=== PATIENT | female | born 1955 | race Caucasian/White ===

== ENCOUNTER 2018-05-02 15:31 | Emergency (ER) | payer MEDICARE, OTHER ==
[2018-05-02] MEDS ORDERED: NAPROXEN 500 MG TABLET ONE (16:22)
== END 2018-05-02 16:35 | disposition home or self-care (01) ==
LOC: EDH 15:31
DX: S52.592A Other fractures of lower end of left radius, initial encounter for closed fracture (principal); R03.0 Elevated blood-pressure reading, without diagnosis of hypertension; J44.9 Chronic obstructive pulmonary disease, unspecified; Z87.891 Personal history of nicotine dependence; Z88.6 Allergy status to analgesic agent; W18.39XA Other fall on same level, initial encounter; Y93.89 Activity, other specified; Y92.098 Other place in other non-institutional residence as the place of occurrence of the external cause; Y99.8 Other external cause status
CPT/HCPCS: 29125; 73110

== ENCOUNTER 2019-05-13 10:40 | Observation (INO) | payer OTHER ==
[~2019-05-13] VITALS: Ht 162.6 cm; Wt 83.5 kg
[2019-05-13] MEDS ORDERED: SODIUM CHLORIDE 0.9% 1000ML 1,000 ML IV ONE ×2 (10:48→15:09)
[2019-05-13] MEDS ORDERED: ONDANSETRON HCL 4 MG/2 ML VIAL ONE (11:00)
[2019-05-13] MEDS ORDERED: MORPHINE SULFATE 4 MG/1ML SYG ONE ×2 (11:00→15:09)
[2019-05-13 11:03] LABS: BASOPHILS % (AUTO) 0.6 % (0.0-5.0); EOSINOPHILS % (AUTO) 1.8 % (0.0-8.0); HEMATOCRIT 42.9 % (36-48); MEAN CORPUSCULAR HEMOGLOBIN 29.7 pg (27.0-33.0); MEAN CORPUSCULAR HGB CONC 32.9 g/dL (32.0-36.0); MEAN CORPUSCULAR VOLUME 90.5 fL (79-99); MONOCYTES % (AUTO) 8.4 % (3.0-13.0); PLATELET COUNT (AUTO) 276 K/uL (130-400); RED BLOOD CELL COUNT(AUTO) 4.74 MIL/uL (4.00-5.50); RED CELL DISTRIBUTION WIDTH 12.7 % (11.0-15.5); WHITE BLOOD COUNT (AUTO) 12.6 K/uL (4.8-10.8)
[2019-05-13 11:16] LABS: CREATININE 0.9 mg/dL (0.5-1.5); POTASSIUM 4.1 mmol/L (3.5-5.1)
[2019-05-13 11:28] LABS: ALBUMIN 4.1 g/dL (3.5-5.0); BILIRUBIN,TOTAL 0.3 mg/dL (0.2-1.0); TOTAL PROTEIN, SERUM 7.7 g/dL (6.0-8.3)
[2019-05-13 12:10] LABS: INR 0.93 (0.85-1.15); PARTIAL THROMBOPLASTIN TIME 29.7 SEC (26.3-35.5); PROTHROMBIN TIME 9.8 SEC (9.6-11.6)
[2019-05-13] MEDS ORDERED: ZOSYN 3.375GM+NS 50ML 50 ML IV ONE (12:19)
[2019-05-13] MEDS ORDERED: LIDOCAINE HCL-MPF 1% 2ML VIAL ONE (12:31)
[2019-05-13] MEDS ORDERED: CEFTRIAXONE SODIUM 1 GM ONE (12:31)
[2019-05-13] MEDS ORDERED: ONDANSETRON HCL 4 MG/2 ML VIAL IV PRN (13:15)
[2019-05-13] MEDS ORDERED: MORPHINE SULFATE 4 MG/1ML SYG IV PRN (13:15)
[2019-05-13] MEDS ORDERED: ACETAMINOPHEN 325 MG TAB PO PRN ×2 (13:15)
[2019-05-13] MEDS ORDERED: HYDRALAZINE HCL 20 MG/ML VIAL IV PRN (13:15)
[2019-05-13] MEDS: SODIUM CHLORIDE 0.9% 1000ML 1,000 ML IV SCH ×2 (13:15→23:11)
[2019-05-13] MEDS: METRONIDAZOLE 500MG/100ML BAG 100 ML IV SCH ×2 (14:00→21:02)
[2019-05-13] MEDS ORDERED: METRONIDAZOLE 500MG/100ML BAG 100 ML ONE (15:08)
[2019-05-13] MEDS: LEVOFLOXACIN 500 MG/D5W 100 ML 100 ML IV SCH (16:00)
[2019-05-13 17:42] VITALS: BP 137/70
[2019-05-13] MEDS ORDERED: HYDROXYZINE HCL 25 MG TABLET PO PRN (18:00)
[2019-05-13] MEDS: MORPHINE SULFATE 2 MG/ML 1ML SYG IV PRN (18:25)
[2019-05-13] MEDS: IPRATROPIUM/ALBUTEROL SULFATE 3 ML SOLUTION IH SCH ×2 (18:44→23:12)
[2019-05-13 20:00] VITALS: BP 132/83
[2019-05-13] MEDS: ZOSYN 3.375GM+NS 50ML 50 ML IV SCH (20:20)
[2019-05-13] MEDS: ENOXAPARIN SODIUM 40 MG/0.4 ML SYRINGE SQ SCH (20:20)
[2019-05-14] VITALS: BP 123/76
[2019-05-14 04:15] VITALS: BP 126/71
[2019-05-14] MEDS: ZOSYN 3.375GM+NS 50ML 50 ML IV SCH (05:03)
[2019-05-14 05:32] LABS: BASOPHILS % (AUTO) 0.7 % (0.0-5.0); EOSINOPHILS % (AUTO) 1.4 % (0.0-8.0); HEMATOCRIT 36.8 % (36-48); LYMPHOCYTES % (AUTO) 19.7 % (21.0-51.0); MEAN CORPUSCULAR HEMOGLOBIN 29.6 pg (27.0-33.0); MEAN CORPUSCULAR HGB CONC 32.3 g/dL (32.0-36.0); MEAN CORPUSCULAR VOLUME 91.5 fL (79-99); MONOCYTES % (AUTO) 11.6 % (3.0-13.0); NEUTROPHILS % (AUTO) 66.2 % (40.0-77.0); PLATELET COUNT (AUTO) 225 K/uL (130-400); RED BLOOD CELL COUNT(AUTO) 4.02 MIL/uL (4.00-5.50); RED CELL DISTRIBUTION WIDTH 12.8 % (11.0-15.5); WHITE BLOOD COUNT (AUTO) 8.4 K/uL (4.8-10.8)
[2019-05-14 05:43] LABS: CREATININE 0.8 mg/dL (0.5-1.5); POTASSIUM 3.6 mmol/L (3.5-5.1)
[2019-05-14] MEDS: METRONIDAZOLE 500MG/100ML BAG 100 ML IV SCH (06:06)
[2019-05-14] MEDS: MORPHINE SULFATE 2 MG/ML 1ML SYG IV PRN (06:13)
--- NOTE | 2019-05-14 06:30 | NUR ---
STATUS Pt slept well,was medicated with Morphine once,Pt states he wants to go home today.
[2019-05-14] MEDS: IPRATROPIUM/ALBUTEROL SULFATE 3 ML SOLUTION IH SCH ×2 (06:35→11:17)
[2019-05-14 08:00] VITALS: BP 133/75
[2019-05-14] MEDS: SODIUM CHLORIDE 0.9% 1000ML 1,000 ML IV SCH (08:50)
[2019-05-14] MEDS: LEVOFLOXACIN 500 MG/D5W 100 ML 100 ML IV SCH (08:56)
[2019-05-14] MEDS: ENOXAPARIN SODIUM 40 MG/0.4 ML SYRINGE SQ SCH (08:56)
--- NOTE | 2019-05-14 11:26 | NUR ---
DCP CM met with pt discussed dc plans. Pt is independent prior to admission, lives at home w/spouse, winter Tx from [place]. Denies any equipments/services. Feels safe to go back home, still drives, spouse able to assist with transportation and needs as necessary. DC plan to home once stable. CM to cont to follow up. Addendum: 05/14/19 at 1128 by MATT GREEN LVN CM Amended: Links added.
[2019-05-14 12:00] VITALS: BP 121/57
[2019-05-14] MEDS ORDERED: LEVO750T46 PO (12:06)
[2019-05-14] MEDS ORDERED: METR-172 PO (12:06)
== END 2019-05-14 13:25 | disposition home or self-care (01) ==
LOC: EDH 10:40 → EDHIP 13:15 → 3BH 17:30
PROVIDERS: ADMIT Family Medicine; ATTEND Family Medicine
DX: K57.32 Diverticulitis of large intestine without perforation or abscess without bleeding (principal); D72.829 Elevated white blood cell count, unspecified; R65.10 Systemic inflammatory response syndrome (SIRS) of non-infectious origin without acute organ dysfunction; J44.9 Chronic obstructive pulmonary disease, unspecified; I10 Essential (primary) hypertension; E66.9 Obesity, unspecified; Z87.891 Personal history of nicotine dependence; Z79.899 Other long term (current) drug therapy; Z68.31 Body mass index [BMI] 31.0-31.9, adult
CPT/HCPCS: 36415; 74176; 80048; 80053; 82550; 83690; 84484; 85025; 85610; 85730; 87040; 94640; 94664; 96365; 96366; 96367; 96368; 96372; 96375; 96376; G0378; J0696; J1650; J1956; J2270; J2405; J2543; J3490; J7030

== ENCOUNTER 2021-04-05 15:01 | Observation (INO) | payer OTHER ==
[~2021-04-05] VITALS: Ht 154.9 cm; Wt 83.9 kg
[~2021-04-05 15:01] MED LIST: LEVO750T46 PO; METR-172 PO
[2021-04-05 15:27] LABS: BASOPHILS % (AUTO) 0.6 % (0.0-5.0); EOSINOPHILS % (AUTO) 3.1 % (0.0-8.0); HEMATOCRIT 38.8 % (36-48); LYMPHOCYTES % (AUTO) 21.1 % (21.0-51.0); MEAN CORPUSCULAR HEMOGLOBIN 29.6 pg (27.0-33.0); MEAN CORPUSCULAR HGB CONC 32.2 g/dL (32.0-36.0); MEAN CORPUSCULAR VOLUME 91.7 fL (79-99); MONOCYTES % (AUTO) 10.1 % (3.0-13.0); NEUTROPHILS % (AUTO) 64.9 % (40.0-77.0); PLATELET COUNT (AUTO) 228 K/uL (130-400); RED BLOOD CELL COUNT(AUTO) 4.23 MIL/uL (4.00-5.50); RED CELL DISTRIBUTION WIDTH 13.2 % (11.0-15.5); WHITE BLOOD COUNT (AUTO) 6.4 K/uL (4.8-10.8)
[2021-04-05 16:00] LABS: B-TYPE NATRIURETIC PEPTIDE 7 pg/mL (0-100)
[2021-04-05 16:01] LABS: CREATININE 0.9 mg/dL (0.5-1.5); POTASSIUM 3.8 mmol/L (3.5-5.1)
[2021-04-05 16:05] LABS: ALBUMIN 3.9 g/dL (3.5-5.0); BILIRUBIN,TOTAL 0.2 mg/dL (0.2-1.0); MAGNESIUM 2.1 mg/dL (1.80-2.40); TOTAL PROTEIN, SERUM 6.7 g/dL (6.0-8.3)
[2021-04-05 17:13] LABS: PROTHROMBIN TIME 10.9 SEC (9.6-11.6)
[2021-04-05 17:15] LABS: PARTIAL THROMBOPLASTIN TIME 30.3 SEC (26.3-35.5)
[2021-04-05 17:54] LABS: APPEARANCE,URINE Clear (CLEAR); BILIRUBIN,URINE Negative (NEGATIVE); COLOR,URINE Yellow (YELLOW); GLUCOSE, URINE (UA) Negative (NEGATIVE); KETONES,URINE Negative (NEGATIVE); LEUKOCYTE ESTERASE ,URINE Negative (NEGATIVE); NITRATE,URINE Negative (NEGATIVE); OCCULT BLOOD,URINE Negative (NEGATIVE); PH,URINE 5.5 (5.0-8.0); PROTEIN,URINE Negative (NEGATIVE); UROBILINOGEN,URINE 0.2 mg/dL (0.2-1.0)
[2021-04-05 17:58] VITALS: BP 120/54
[2021-04-05] MEDS ORDERED: ONDANSETRON 4MG INJ IV PRN (19:30)
[2021-04-05] MEDS ORDERED: ACETAMINOPHEN 325 MG TAB PO PRN ×2 (19:30)
[2021-04-05] MEDS ORDERED: NITROGLYCERIN 1GM OINT 1 INCH/1GM TD SCH (19:30)
[2021-04-05] MEDS ORDERED: DOXY100C5 PO (19:42)
[2021-04-05 20:01] LABS: HEMOGLOBIN A1C 5.6 % (4.0-6.0)
[2021-04-05 20:22] LABS: CRP QUANTITATIVE 9.3 mg/L (0.00-9.0); THYROID STIMULATING HORMONE 0.58 uIU/mL (0.36-3.74)
[2021-04-05] MEDS ORDERED: ATORVASTATIN 40 MG TABLET PO SCH (21:00)
[2021-04-05] MEDS ORDERED: FAMOTIDINE 20MG VIAL IV SCH (21:00)
[2021-04-05] MEDS ORDERED: CARVEDILOL 3.125 MG TABLET PO SCH (21:00)
[2021-04-06] MEDS ORDERED: ENOXAPARIN SODIUM 40 MG/0.4 ML SYRINGE SQ SCH (09:00)
== END 2021-04-05 20:45 | disposition home or self-care (01) ==
LOC: EDH 15:01 → EDHIP 19:05
PROVIDERS: ADMIT Internal Medicine; ATTEND Internal Medicine
DX: R07.89 Other chest pain (principal); Z20.822 Contact with and (suspected) exposure to COVID-19; R53.81 Other malaise; R51.9 Headache, unspecified; R53.1 Weakness; F41.8 Other specified anxiety disorders; J44.9 Chronic obstructive pulmonary disease, unspecified; Z79.899 Other long term (current) drug therapy
CPT/HCPCS: 36415; 71045; 80053; 80061; 81003; 82550; 83036; 83605; 83735; 83880; 84145; 84443; 84484; 85025; 85378; 85610; 85651; 85730; 86140; 86757; 87040 ×2; 87635; 87804 ×2; 93005 ×2; 99285; C9803; G0378

== ENCOUNTER 2021-08-26 15:26 | Emergency (ER) | payer MEDICARE, OTHER ==
[~2021-08-26] VITALS: Ht 162.6 cm; Wt 84.4 kg
[~2021-08-26 15:26] MED LIST changes: +DOXY100C5 PO; -LEVO750T46 PO; -METR-172 PO
[2021-08-26 15:52] LABS: BASOPHILS % (AUTO) 1.1 % (0.0-5.0); EOSINOPHILS % (AUTO) 2.5 % (0.0-8.0); HEMATOCRIT 40.3 % (36-48); LYMPHOCYTES % (AUTO) 24.4 % (21.0-51.0); MEAN CORPUSCULAR HEMOGLOBIN 30.8 pg (27.0-33.0); MEAN CORPUSCULAR HGB CONC 34.7 g/dL (32.0-36.0); MEAN CORPUSCULAR VOLUME 88.6 fL (79-99); MONOCYTES % (AUTO) 8.1 % (3.0-13.0); NEUTROPHILS % (AUTO) 63.5 % (40.0-77.0); PLATELET COUNT (AUTO) 252 K/uL (130-400); RED BLOOD CELL COUNT(AUTO) 4.55 MIL/uL (4.00-5.50); RED CELL DISTRIBUTION WIDTH 12.7 % (11.0-15.5); WHITE BLOOD COUNT (AUTO) 8.4 K/uL (4.8-10.8)
[2021-08-26] MEDS ORDERED: IPRATROPIUM/ALBUTEROL SULFATE 3 ML SOLUTION IH ONE (16:00)
[2021-08-26] MEDS ORDERED: 0.9%NACL 1000ML 1,000 ML IV ONE (16:00)
[2021-08-26 16:07] LABS: APPEARANCE,URINE Clear (CLEAR); BILIRUBIN,URINE Negative (NEGATIVE); COLOR,URINE Yellow (YELLOW); GLUCOSE, URINE (UA) Negative (NEGATIVE); KETONES,URINE Negative (NEGATIVE); LEUKOCYTE ESTERASE ,URINE Negative (NEGATIVE); NITRATE,URINE Negative (NEGATIVE); OCCULT BLOOD,URINE Negative (NEGATIVE); PH,URINE 5.5 (5.0-8.0); PROTEIN,URINE Negative (NEGATIVE); UROBILINOGEN,URINE 0.2 mg/dL (0.2-1.0)
[2021-08-26 16:07] LABS: CREATININE 0.7 mg/dL (0.5-1.5); POTASSIUM 4.5 mmol/L (3.5-5.1)
[2021-08-26 16:11] LABS: ALBUMIN 3.8 g/dL (3.5-5.0); BILIRUBIN,TOTAL 0.3 mg/dL (0.2-1.0); TOTAL PROTEIN, SERUM 7.1 g/dL (6.0-8.3)
[2021-08-26] MEDS ORDERED: SOLU-MEDROL 125MG VIAL IVP ONE (16:30)
[2021-08-26 17:29] VITALS: BP 134/55
[2021-08-26] MEDS ORDERED: PRED20TA3 PO (17:51)
== END 2021-08-26 18:07 | disposition home or self-care (01) ==
LOC: EDH 15:26
DX: J44.1 Chronic obstructive pulmonary disease with (acute) exacerbation (principal); Z88.6 Allergy status to analgesic agent; Z79.52 Long term (current) use of systemic steroids
CPT/HCPCS: 36415; 71045; 80053; 81003; 84484; 85025; 87804 ×2; 93005; 94640; 96361; 96374; 99285; J2930; J7030

== ENCOUNTER 2022-04-04 10:13 | Emergency (ER) | payer MEDICARE ==
[~2022-04-04] VITALS: Ht 162.6 cm; Wt 81.6 kg
[~2022-04-04 10:13] MED LIST changes: +PRED20TA3 PO
[2022-04-04 10:49] LABS: BASOPHILS % (AUTO) 0.7 % (0.0-5.0); EOSINOPHILS % (AUTO) 2.9 % (0.0-8.0); HEMATOCRIT 42.6 % (36-48); LYMPHOCYTES % (AUTO) 16.3 % (21.0-51.0); MEAN CORPUSCULAR HEMOGLOBIN 30.1 pg (27.0-33.0); MEAN CORPUSCULAR HGB CONC 32.9 g/dL (32.0-36.0); MEAN CORPUSCULAR VOLUME 91.6 fL (79-99); MONOCYTES % (AUTO) 10.6 % (3.0-13.0); NEUTROPHILS % (AUTO) 69.3 % (40.0-77.0); PLATELET COUNT (AUTO) 229 K/uL (130-400); RED BLOOD CELL COUNT(AUTO) 4.65 MIL/uL (4.00-5.50); RED CELL DISTRIBUTION WIDTH 12.6 % (11.0-15.5); WHITE BLOOD COUNT (AUTO) 5.8 K/uL (4.8-10.8)
[2022-04-04 10:56] LABS: CREATININE 0.9 mg/dL (0.5-1.5); POTASSIUM 4.7 mmol/L (3.5-5.1)
[2022-04-04 11:04] LABS: ALBUMIN 3.6 g/dL (3.5-5.0); TOTAL PROTEIN, SERUM 7.1 g/dL (6.0-8.3)
[2022-04-04] MEDS ORDERED: IPRATROPIUM/ALBUTEROL SULFATE 3 ML SOLUTION IH ONE (11:30)
[2022-04-04] MEDS ORDERED: SOLU-MEDROL 125MG VIAL IVP ONE (11:30)
[2022-04-04 13:32] VITALS: BP 150/66
[2022-04-04] MEDS ORDERED: ALBU2.5V2 IH (13:35)
[2022-04-04] MEDS ORDERED: AZIT500T2 PO (13:35)
[2022-04-04] MEDS ORDERED: PRED20TA3 PO (13:35)
== END 2022-04-04 13:48 | disposition home or self-care (01) ==
LOC: EDH 10:13
DX: J44.1 Chronic obstructive pulmonary disease with (acute) exacerbation (principal); Z20.822 Contact with and (suspected) exposure to COVID-19; F41.9 Anxiety disorder, unspecified; F32.A Depression, unspecified; M19.90 Unspecified osteoarthritis, unspecified site; Z98.890 Other specified postprocedural states; Z88.6 Allergy status to analgesic agent; Z79.899 Other long term (current) drug therapy
CPT/HCPCS: 99285; 96374; 71045; 87635; 84484; 80053; 85025; 87804 ×2; 36415; 93005; 94640; C9803; J2930

== ENCOUNTER 2022-06-28 14:44 | Emergency (ER) | payer MEDICARE ==
[~2022-06-28] VITALS: Ht 162.6 cm; Wt 79.4 kg
[~2022-06-28 14:44] MED LIST changes: +ALBU2.5V2 IH; +AZIT500T2 PO; -DOXY100C5 PO
[2022-06-28 15:20] VITALS: BP 134/87
[2022-06-28] MEDS ORDERED: ALBU18HF7 IH (16:53)
[2022-06-28] MEDS ORDERED: NIRM1TAB5 PO (16:53)
== END 2022-06-28 17:01 | disposition home or self-care (01) ==
LOC: EDH 14:44
DX: U07.1 COVID-19 (principal); J44.9 Chronic obstructive pulmonary disease, unspecified; F41.9 Anxiety disorder, unspecified; J45.909 Unspecified asthma, uncomplicated; F32.A Depression, unspecified; Z88.6 Allergy status to analgesic agent; Z79.899 Other long term (current) drug therapy; Z90.710 Acquired absence of both cervix and uterus
CPT/HCPCS: 99283; 87635; 87880; 87804 ×2; C9803

== ENCOUNTER 2022-08-03 16:26 | Emergency (ER) | payer MEDICARE ==
[~2022-08-03] VITALS: Ht 162.6 cm; Wt 82.6 kg
[~2022-08-03 16:26] MED LIST changes: +ALBU18HF7 IH; +NIRM1TAB5 PO
[2022-08-03 16:42] VITALS: BP 156/90
[2022-08-03 17:14] LABS: APPEARANCE,URINE CLEAR (CLEAR); BILIRUBIN,URINE NEGATIVE (NEGATIVE); COLOR,URINE DARK-YELLOW (YELLOW); GLUCOSE, URINE (UA) NEGATIVE (NEGATIVE); KETONES,URINE NEGATIVE (NEGATIVE); LEUKOCYTE ESTERASE ,URINE NEGATIVE Leu/uL (NEGATIVE); NITRATE,URINE NEGATIVE (NEGATIVE); OCCULT BLOOD,URINE NEGATIVE (NEGATIVE); PROTEIN,URINE NEGATIVE (NEGATIVE); UROBILINOGEN,URINE 0.2 mg/dL (0.2-1.0)
[2022-08-03 17:15] LABS: BACTERIA,URINE RARE /HPF (None Seen); MUCUS,URINE RARE LPF (None Seen); RBC,URINE 0-1 /HPF (0-1); SQUAMOUS EPITHELIAL CELL,UR RARE /HPF (0-2)
[2022-08-03] MEDS ORDERED: METR-172 PO (18:51)
== END 2022-08-03 19:08 | disposition home or self-care (01) ==
LOC: EDH 16:26
DX: K57.30 Diverticulosis of large intestine without perforation or abscess without bleeding (principal); F41.9 Anxiety disorder, unspecified; J44.9 Chronic obstructive pulmonary disease, unspecified; F32.A Depression, unspecified; Z79.52 Long term (current) use of systemic steroids; Z88.6 Allergy status to analgesic agent; Z90.710 Acquired absence of both cervix and uterus
CPT/HCPCS: 74176; 81001